=== PATIENT | male | born 2000 | race African-American/Black ===

== ENCOUNTER 2021-07-25 00:04 | Emergency (ER) | payer OTHER ==
[2021-07-25 01:08] LABS: BASO % 0.3 % (0.0-2.0); EOS % 0.2 % (0.0-4.0); GRAN # 4.3 K/mm3 (1.4-6.5); GRAN % 70.7 % (42.2-75.2); HEMATOCRIT 42.8 % (36.0-47.0); HEMOGLOBIN 15.3 g/dl (12.5-16.1); LYMPH # 1.3 K/mm3 (1.2-3.4); LYMPH % 20.8 % (20.0-51.0); MEAN CELL VOLUME 85 fl (80.0-95.0); MEAN CORPUSCULAR HEMOGLOBIN 31 pg (26-32); MEAN CORPUSCULAR HGB CONC 36 g/dl (33.0-37.0); MONO # 0.5 K/mm3 (0.1-0.6); MONO % 7.8 % (1.7-9.3); PLATELET COUNT 264 K/mm3 (130-400); RED BLOOD COUNT 5.01 M/mm3 (4.20-5.60); REDCELL DISTRIBUTION WIDTH-CV 11.8 % (11.5-14.5)
[2021-07-25 01:25] LABS: ALANINE AMINOTRANSFERASE 9 U/L (0-55); ALBUMIN 4.5 gm/dL (3.5-5.0); ALKALINE PHOSPHATASE 97 U/L (40-150); ANION GAP 10 mmol/L (7-16); AST,SGOT 15 U/L (5-34); BLOOD UREA NITROGEN 9 mg/dL (8-21); CALCIUM 9.1 mg/dL (8.4-10.2); CARBON DIOXIDE 26 mmol/L (22-29); CHLORIDE 104 mmol/L (98-107); CREATININE, serum 1.17 mg/dL (0.72-1.25); GLUCOSE 97 mg/dL (70-99); POTASSIUM 3.4 mmol/L (3.5-4.5); SODIUM 140 mmol/L (136-145); TOTAL PROTEIN 7.3 gm/dL (6.2-8.1)
[2021-07-25 01:37] LABS: ALCOHOL(ethanol),MEDICAL < 10 mg/dL (0-10); SALICYLATE < 5.0 mg/dL (15.0-30.0)
[2021-07-25 10:15] VITALS: TEMP 98
[2021-07-25 13:21] VITALS: BP 133/66; PULSE 94
== END 2021-07-25 13:24 ==
LOC: COL.ER 00:04
PROVIDERS: Nurse Practitioner
DX: R45.851 Suicidal ideations (principal); F17.290 Nicotine dependence, other tobacco product, uncomplicated

== ENCOUNTER 2021-09-24 22:15 | Emergency (ER) | payer OTHER ==
[~2021-09-24] VITALS: Ht 177.8 cm; Wt 63.6 kg
[2021-09-24 22:26] VITALS: TEMP 97.4
[2021-09-24] MEDS ORDERED: ZOFRAN ODT4 MG PO (23:34)
[2021-09-24] MEDS ORDERED: CLEOCIN HC150 MG/CAP PO (23:34)
[2021-09-24 23:46] VITALS: BP 146/70; PULSE 76
== END 2021-09-24 23:46 | disposition home or self-care (01) ==
LOC: COL.ER 22:15
DX: R11.2 Nausea with vomiting, unspecified (principal); Z28.310 Unvaccinated for COVID-19
CPT/HCPCS: J2405; J7030

== ENCOUNTER 2022-01-20 00:54 | Emergency (ER) | payer OTHER ==
[~2022-01-20] VITALS: Ht 177.8 cm; Wt 65.9 kg
[~2022-01-20 00:54] MED LIST: CLEOCIN HC150 MG/CAP PO; ZOFRAN ODT4 MG PO
[2022-01-20 00:57] VITALS: TEMP 97
[2022-01-20] MEDS ORDERED: CEPHALEXIN500 M1 PO (01:06)
[2022-01-20 01:20] VITALS: BP 120/81; PULSE 80
== END 2022-01-20 01:28 | disposition home or self-care (01) ==
LOC: COL.ER 00:54
DX: L03.012 Cellulitis of left finger (principal)